=== PATIENT | male | born 1935 | race Caucasian/White ===

== ENCOUNTER 2021-10-16 09:08 | Outpatient (CLI) | payer MEDICARE, BC | END 2021-10-16 09:09 | disposition home or self-care (01) | LOC: CSHWCC 09:08 | PROVIDERS: ATTEND Nurse Practitioner Family | DX: E11.622 Type 2 diabetes mellitus with other skin ulcer (principal); L97.822 Non-pressure chronic ulcer of other part of left lower leg with fat layer exposed; E11.621 Type 2 diabetes mellitus with foot ulcer; L97.522 Non-pressure chronic ulcer of other part of left foot with fat layer exposed; R60.0 Localized edema | CPT/HCPCS: 11042; 97139; G0463; 99204 ==

== ENCOUNTER 2021-10-30 10:47 | Outpatient (CLI) | payer MEDICARE, BC | END 2021-10-30 10:48 | disposition home or self-care (01) | LOC: CSHWCC 10:47 | PROVIDERS: ATTEND Nurse Practitioner Family | DX: E11.622 Type 2 diabetes mellitus with other skin ulcer (principal); L97.822 Non-pressure chronic ulcer of other part of left lower leg with fat layer exposed; R60.0 Localized edema ==

== ENCOUNTER 2021-11-13 11:07 | Outpatient (CLI) | payer MEDICARE, BC | END 2021-11-13 11:08 | disposition home or self-care (01) | LOC: CSHWCC 11:07 | PROVIDERS: ATTEND Nurse Practitioner Family | DX: R60.0 Localized edema (principal) | CPT/HCPCS: 97139; G0463; 99213 ==

== ENCOUNTER 2021-12-04 13:07 | Outpatient (CLI) | payer MEDICARE, BC | END 2021-12-04 13:08 | disposition home or self-care (01) | LOC: CSHWCC 13:07 | PROVIDERS: ATTEND Nurse Practitioner Family | DX: R60.0 Localized edema (principal) | CPT/HCPCS: 29581; 97139; G0463; 99212 ==

== ENCOUNTER 2023-02-25 06:11 | Emergency (ER) | payer MEDICARE, BC | END 2023-02-25 07:42 | disposition home or self-care (01) | LOC: CSHERS 06:11 | DX: S51.012A Laceration without foreign body of left elbow, initial encounter (principal); E11.9 Type 2 diabetes mellitus without complications; I11.0 Hypertensive heart disease with heart failure; I50.9 Heart failure, unspecified; W19.XXXA Unspecified fall, initial encounter | CPT/HCPCS: 99283 ==

== ENCOUNTER 2023-03-30 12:40 | Inpatient (IN) | payer MEDICARE, BC ==
[2023-03-30 13:21] LABS: #Eosinphils 0.1 10x3/uL (0.0-0.5); #Neutrophils 3.4 10x3/uL (1.5-8.4); %Basophils 0.3 % (0.0-2.0); %Eosinophils 2.2 % (0.0-6.0); %Lymphocytes 5.1 % (18.0-47.0); %Monocytes 0.5 % (0.0-10.0); %Neutrophils 91.4 % (40.0-75.0); Hematocrit 34.7 % (38.8-50.0); Hemoglobin 10.9 g/dL (13.5-17.5); Mean Corpuscular HGB CONC 31.4 g/dL (32.0-36.0); Mean Corpuscular Hemoglobin 31.1 pg (27.0-33.0); Mean Corpuscular Volume 98.9 fl (81.2-95.1); Mean Platelet Volume 9.5 fl (7.4-10.4); Platelet Count 313 10x3/uL (150-450); Red Blood Cell (RBC) Count 3.51 10x6/uL (4.32-5.72); White Blood Cell (WBC) Count 3.7 10x3/uL (3.5-10.5)
[2023-03-30] MEDS ORDERED: Piperacillin/Tazobactam 4.5 GM VIAL ONE (13:36)
[2023-03-30] MEDS ORDERED: Vancomycin 1 GM VIAL ONE (13:36)
[2023-03-30 13:45] LABS: ALT (SGPT) 12 U/L (8-55); AST (SGOT) 18 U/L (5-34); Albumin 3.5 g/dL (3.4-4.8); Alkaline Phosphatase 89 U/L (40-110); Anion Gap 17 mmol/L (10-20); BUN (Urea Nitrogen) 34 mg/dL (8.4-25.7); Bilirubin, Total 0.6 mg/dL (0.2-1.2); Calc. Creatinine Clearance 0 mL/min (70-130); Calcium 9.2 mg/dL (7.8-10.44); Carbon Dioxide 21 mmol/L (23-31); Chloride 102 mmol/L (98-107); Estimated GFR 29; Glucose 92 mg/dL (83-110); Potassium 5.2 mmol/L (3.5-5.1); Protein, Total 5.5 g/dL (5.8-8.1); Sodium 135 mmol/L (136-145)
[2023-03-30] MEDS ORDERED: Acetaminophen 500 MG TAB ONE (13:54)
[2023-03-30 14:28] LABS: SARS-CoV-2 NAA Rapid Test Not Detected (NotDetected)
[2023-03-30] MEDS ORDERED: Sodium Chloride 0.9% 1,000 ML IV SCH (14:45)
[2023-03-30] MEDS ORDERED: Ondansetron PF 4 MG/2 ML Vial IVP PRN (14:45)
[2023-03-30] MEDS ORDERED: Ondansetron ODT 4 MG TAB PO PRN (14:45)
[2023-03-30] MEDS ORDERED: HumaLOG 300 UNITS/3 ML VIAL SC PRN ×2 (14:52)
[2023-03-30] MEDS ORDERED: Dextrose 50% Abboject 50 ML SYRINGE SLOW IVP PRN (14:52)
[2023-03-30] MEDS ORDERED: Glucagon 1 MG/ML KIT IM PRN (14:52)
[2023-03-30] MEDS ORDERED: Dextrose 5% in Water 1,000 ML IV PRN (14:52)
[2023-03-30 15:53] LABS: Bilirubin Neg (Negative); Blood, Urine 50 (Negative); Clarity Cloudy (Clear); Glucose, Urine (Dipstick) Normal (Negative); Ketone, Urine Negative (Negative); Leukocyte 500 (Negative); Nitrite Negative (Negative); Protein, Urine (Dipstick) 30 mg/dl (Neg-Trace); Specific Gravity, Urine 1.005 (1.005-1.030); Urobilinogen Normal mg/dL (Less than 2)
[2023-03-30 16:02] LABS: Lactic Acid 1.8 mmol/L (0.5-2.2)
[2023-03-30 16:09] LABS: Bacteria/HPF 4+ HPF (None Seen); CAUTI Indications for Culture Alt mental st,lethar; WBC/HPF Greater than 50 HPF (0-3)
[2023-03-30 16:10] LABS: Urine Culture Reflex Yes Yes
[2023-03-30 18:40] VITALS: BMI 29.5
[2023-03-30] MEDS ORDERED: FLU VACC QS2023(65UP)/MF59C/PF 60 MCG/0.5 ML SYRINGE IM ONE (18:45)
[2023-03-31 05:32] LABS: Hematocrit 30.7 % (38.8-50.0); Mean Corpuscular HGB CONC 32.6 g/dL (32.0-36.0); Mean Corpuscular Hemoglobin 31.3 pg (27.0-33.0); Mean Corpuscular Volume 96.2 fl (81.2-95.1); Mean Platelet Volume 9.5 fl (7.4-10.4); Platelet Count 282 10x3/uL (150-450); Red Blood Cell (RBC) Count 3.19 10x6/uL (4.32-5.72); White Blood Cell (WBC) Count 19.8 10x3/uL (3.5-10.5)
[2023-03-31 05:36] LABS: Anion Gap 15 mmol/L (10-20); BUN (Urea Nitrogen) 32 mg/dL (8.4-25.7); Calc. Creatinine Clearance 39 mL/min (70-130); Calcium 8.7 mg/dL (7.8-10.44); Carbon Dioxide 20 mmol/L (23-31); Chloride 105 mmol/L (98-107); Estimated GFR 33; Glucose 78 mg/dL (83-110); Potassium 4.5 mmol/L (3.5-5.1); Sodium 135 mmol/L (136-145)
[2023-03-31 06:01] LABS: MDiff Complete? YES
[2023-03-31 06:04] LABS: Band 14 % (5-11); Lymphocytes 4 % (21-51); Monocytes 4 % (0-10)
[2023-03-31 06:06] LABS: Metamyelocyte 1 % (0-0); Neutrophil 77 % (42-75); Toxic Granulation SLIGHT
[2023-03-31 06:07] LABS: Dohle Bodies SLIGHT; Vacuoles SLIGHT
[2023-03-31 06:08] LABS: Platelet Adequacy Comment Platelets Normal
[2023-03-31 06:09] LABS: RBC Morph Comment Within Normal Limits
[2023-03-31] MEDS ORDERED: Cefepime 1 GM in Sodium Chloride 0.9% 100 ML IVPB SCH (09:00)
[2023-03-31] MEDS: cefTRIAXone\\ROCEPHIN 1 GM in Sodium Chloride 0.9% 100 ML IVPB SCH (09:07)
[2023-03-31] MEDS: Sodium Chloride 0.9% 1,000 ML IV SCH (14:46)
[2023-03-31] MEDS: Tamsulosin HCl 0.4 MG CAP PO SCH (21:54)
[2023-04-01] MEDS: Acetaminophen 325 MG TAB PO PRN (00:01)
[2023-04-01] MEDS ORDERED: Haloperidol Lactate 5 MG/ML VIAL IM SCH (02:15)
[2023-04-01 04:40] LABS: #Basophils 0.1 10x3/uL (0.0-0.2); #Eosinphils 0.3 10x3/uL (0.0-0.5); #Neutrophils 10.9 10x3/uL (1.5-8.4); %Basophils 0.4 % (0.0-2.0); %Eosinophils 2.2 % (0.0-6.0); %Lymphocytes 6.7 % (18.0-47.0); %Monocytes 7.2 % (0.0-10.0); %Neutrophils 82.3 % (40.0-75.0); Hematocrit 31.2 % (38.8-50.0); Hemoglobin 10.1 g/dL (13.5-17.5); Mean Corpuscular HGB CONC 32.4 g/dL (32.0-36.0); Mean Corpuscular Hemoglobin 30.7 pg (27.0-33.0); Mean Corpuscular Volume 94.8 fl (81.2-95.1); Mean Platelet Volume 9.9 fl (7.4-10.4); Platelet Count 257 10x3/uL (150-450); RBC Distribution Width 14.9 % (11.5-14.5); Red Blood Cell (RBC) Count 3.29 10x6/uL (4.32-5.72); White Blood Cell (WBC) Count 13.3 10x3/uL (3.5-10.5)
[2023-04-01 04:46] LABS: Anion Gap 13 mmol/L (10-20); BUN (Urea Nitrogen) 36 mg/dL (8.4-25.7); Calc. Creatinine Clearance 44 mL/min (70-130); Calcium 8.9 mg/dL (7.8-10.44); Carbon Dioxide 18 mmol/L (23-31); Chloride 108 mmol/L (98-107); Estimated GFR 39; Glucose 84 mg/dL (83-110); Potassium 4.1 mmol/L (3.5-5.1); Sodium 135 mmol/L (136-145)
[2023-04-01] MEDS: Sodium Chloride 0.9% 1,000 ML IV SCH (08:22)
[2023-04-01] MEDS: cefTRIAXone\\ROCEPHIN 1 GM in Sodium Chloride 0.9% 100 ML IVPB SCH (08:23)
[2023-04-01] MEDS: Tamsulosin HCl 0.4 MG CAP PO SCH (22:25)
[2023-04-01] MEDS: Heparin 5,000 UNITS/ML VIAL SC SCH (22:25)
[2023-04-02 03:54] LABS: #Eosinphils 0.3 10x3/uL (0.0-0.5); #Monocytes 0.8 10x3/uL (0.0-1.1); #Neutrophils 7.5 10x3/uL (1.5-8.4); %Basophils 0.4 % (0.0-2.0); %Eosinophils 3.2 % (0.0-6.0); %Lymphocytes 11.3 % (18.0-47.0); %Neutrophils 76.6 % (40.0-75.0); Hematocrit 32.2 % (38.8-50.0); Hemoglobin 10.5 g/dL (13.5-17.5); Mean Corpuscular HGB CONC 32.6 g/dL (32.0-36.0); Mean Corpuscular Hemoglobin 31.2 pg (27.0-33.0); Mean Corpuscular Volume 95.5 fl (81.2-95.1); Mean Platelet Volume 10.1 fl (7.4-10.4); Platelet Count 269 10x3/uL (150-450); RBC Distribution Width 14.7 % (11.5-14.5); Red Blood Cell (RBC) Count 3.37 10x6/uL (4.32-5.72); White Blood Cell (WBC) Count 9.8 10x3/uL (3.5-10.5)
[2023-04-02 04:10] LABS: Anion Gap 12 mmol/L (10-20); BUN (Urea Nitrogen) 35 mg/dL (8.4-25.7); Calc. Creatinine Clearance 56 mL/min (70-130); Calcium 8.9 mg/dL (7.8-10.44); Carbon Dioxide 19 mmol/L (23-31); Chloride 107 mmol/L (98-107); Estimated GFR 51; Glucose 112 mg/dL (83-110); Potassium 4.5 mmol/L (3.5-5.1); Sodium 133 mmol/L (136-145)
[2023-04-02] MEDS: Cholecalciferol 1,000 UNITS (25 MCG) TAB PO SCH (08:33)
[2023-04-02] MEDS: Atorvastatin Calcium 10 MG TAB PO SCH (08:33)
[2023-04-02] MEDS: Heparin 5,000 UNITS/ML VIAL SC SCH ×2 (08:34→20:38)
[2023-04-02] MEDS: cefTRIAXone\\ROCEPHIN 1 GM in Sodium Chloride 0.9% 100 ML IVPB SCH (08:34)
[2023-04-02] MEDS ORDERED: Pioglitazone HCl 15 MG TAB PO SCH (09:00)
[2023-04-02] MEDS: Tamsulosin HCl 0.4 MG CAP PO SCH (20:38)
[2023-04-03] MEDS: Acetaminophen 325 MG TAB PO PRN (01:05)
[2023-04-03 03:52] LABS: #Basophils 0.1 10x3/uL (0.0-0.2); #Eosinphils 0.3 10x3/uL (0.0-0.5); #Monocytes 0.7 10x3/uL (0.0-1.1); %Basophils 0.7 % (0.0-2.0); %Eosinophils 4.5 % (0.0-6.0); %Lymphocytes 18.5 % (18.0-47.0); %Monocytes 9.7 % (0.0-10.0); %Neutrophils 65.9 % (40.0-75.0); Hematocrit 32.6 % (38.8-50.0); Hemoglobin 10.4 g/dL (13.5-17.5); Mean Corpuscular HGB CONC 31.9 g/dL (32.0-36.0); Mean Corpuscular Volume 93.9 fl (81.2-95.1); Mean Platelet Volume 9.7 fl (7.4-10.4); Platelet Count 277 10x3/uL (150-450); RBC Distribution Width 14.6 % (11.5-14.5); Red Blood Cell (RBC) Count 3.47 10x6/uL (4.32-5.72); White Blood Cell (WBC) Count 7.6 10x3/uL (3.5-10.5)
[2023-04-03 04:14] LABS: Anion Gap 12 mmol/L (10-20); BUN (Urea Nitrogen) 35 mg/dL (8.4-25.7); Calc. Creatinine Clearance 58 mL/min (70-130); Carbon Dioxide 19 mmol/L (23-31); Chloride 106 mmol/L (98-107); Estimated GFR 54; Glucose 112 mg/dL (83-110); Potassium 4.3 mmol/L (3.5-5.1); Sodium 133 mmol/L (136-145)
[2023-04-03] MEDS ORDERED: Pioglitazone HCl 45 MG TAB PO SCH (09:00)
[2023-04-03] MEDS: Atorvastatin Calcium 10 MG TAB PO SCH (10:00)
[2023-04-03] MEDS: Cholecalciferol 1,000 UNITS (25 MCG) TAB PO SCH (10:00)
[2023-04-03] MEDS: Heparin 5,000 UNITS/ML VIAL SC SCH (10:10)
[2023-04-03] MEDS: cefTRIAXone\\ROCEPHIN 1 GM in Sodium Chloride 0.9% 100 ML IVPB SCH (10:10)
[2023-04-03 12:26] VITALS: BP 126/56; TEMP 97.6
== END 2023-04-03 12:30 | DRG 872 ==
LOC: CSHERS 12:40 → CSHTELE 14:48
PROVIDERS: ADMIT Internal Medicine; ATTEND Internal Medicine
DX: A41.9 Sepsis, unspecified organism (principal); N39.0 Urinary tract infection, site not specified; I13.0 Hypertensive heart and chronic kidney disease with heart failure and stage 1 through stage 4 chronic kidney disease, or unspecified chronic kidney disease; Z66 Do not resuscitate; Z11.52 Encounter for screening for COVID-19; E11.22 Type 2 diabetes mellitus with diabetic chronic kidney disease; I50.9 Heart failure, unspecified; N40.0 Benign prostatic hyperplasia without lower urinary tract symptoms; E78.5 Hyperlipidemia, unspecified; N18.30 Chronic kidney disease, stage 3 unspecified; M19.90 Unspecified osteoarthritis, unspecified site; E66.9 Obesity, unspecified; F03.90 Unspecified dementia, unspecified severity, without behavioral disturbance, psychotic disturbance, mood disturbance, and anxiety; I87.8 Other specified disorders of veins; E87.5 Hyperkalemia; Z68.29 Body mass index [BMI] 29.0-29.9, adult; Z79.899 Other long term (current) drug therapy
CPT/HCPCS: 36415; 36416; 71045; 80048; 80053; 81001; 83605; 85025; 86140; 87040; 87077; 87086; 87149; 87186; 90471; 90694; 93005; 93010; 94760; 94762; 96365; 96366; 96367; 97139; G0008; J0696; J1644; J2543; J3370; J3490; J7050; U0002